=== PATIENT | female | born 1950 | race Caucasian/White ===

== ENCOUNTER 2023-02-23 08:54 | Outpatient (REF) | payer MEDICARE, SELFPAY ==
[2023-02-23 14:41] LABS: HCT 41.3 % (36.0-46.0); HGB 13.7 g/dL (11.2-15.7); MCH 31.3 pg (27.0-33.0); MCHC 33.2 % (32.0-36.0); MCV 94 fL (80-95); MPV 9.7 fL (8.0-11.0); Platelet Count 238 10^3/uL (130-400); RBC 4.38 10^6/uL (3.93-5.22); RDW 12.2 % (11.7-14.6); RDW-SD 43.1 fL
[2023-02-23 16:01] LABS: Hemoglobin A1C 5.9 % (<5.7)
[2023-02-23 16:37] LABS: ALT 29 U/L (14-59); AST 23 U/L (15-37); Albumin 4.1 g/dL (3.4-5.0); Alkaline Phosphatase 61 U/L (46-116); Anion Gap 8.5 mmol/L (3-11); BUN 24 mg/dL (7-18); Bilirubin, Total 0.7 mg/dL (0.2-1.0); CO2 29.5 mmol/L (21.0-32.0); CREATININE 0.8 mg/dL (0.55-1.02); Calcium 9.5 mg/dL (8.5-10.1); Calculated LDL 226 mg/dL (<100); Chloride 102 mmol/L (98-107); Cholesterol 337 mg/dL (<200); Estimated GFR 77.75 (mL/min/1.73m2); Glucose 100 mg/dL (74-106); HDL Cholesterol 97 mg/dL (40-60); Potassium 3.6 mmol/L (3.5-5.1); Sodium 140 mmol/L (136-145); Total Protein 7.1 g/dL (6.4-8.2); Triglyceride 70 mg/dL (<150)
== END 2023-02-23 08:55 | disposition home or self-care (01) ==
LOC: NCHCN 08:54
PROVIDERS: Visit Provider Nurse Practitioner Family
DX: R73.03 Prediabetes (principal); R79.89 Other specified abnormal findings of blood chemistry
CPT/HCPCS: 80053; 80061; 85027; 83036

== ENCOUNTER 2024-12-24 10:43 | Outpatient (REF) | payer MEDICARE, SELFPAY ==
[2024-12-24 15:03] LABS: HCT 39.7 % (36.0-46.0); MCH 31.1 pg (27.0-33.0); MCHC 32.7 % (32.0-36.0); MCV 95 fL (80-95); MPV 10.1 fL (8.0-11.0); Platelet Count 256 10^3/uL (130-400); RBC 4.18 10^6/uL (3.93-5.22); RDW 12.5 % (11.7-14.6); RDW-SD 43.6 fL; WBC 7.01 10^3/uL (4.4-10.8)
[2024-12-24 15:33] LABS: Anion Gap 7.1 mmol/L (3-11); BUN 24 mg/dL (7-18); CO2 29.9 mmol/L (21.0-32.0); CREATININE 0.9 mg/dL (0.55-1.02); Calcium 10.1 mg/dL (8.5-10.1); Calculated LDL 183 mg/dL (<100); Chloride 105 mmol/L (98-107); Cholesterol 300 mg/dL (<200); Estimated GFR 66.67 (mL/min/1.73m2); Glucose 104 mg/dL (74-106); HDL Cholesterol 108 mg/dL (40-60); Potassium 3.7 mmol/L (3.5-5.1); Sodium 142 mmol/L (136-145); Triglyceride 49 mg/dL (<150)
[2024-12-24 18:34] LABS: Hemoglobin A1C 5.9 % (<5.7)
== END 2024-12-24 10:44 | disposition home or self-care (01) ==
LOC: NCHCN 10:43
PROVIDERS: PCP Nurse Practitioner Family; Visit Provider Nurse Practitioner Family
DX: Z00.00 Encounter for general adult medical examination without abnormal findings (principal); R73.03 Prediabetes
CPT/HCPCS: 80048; 80061; 85027; 83036